=== PATIENT | male | born 1940 | race Caucasian/White ===

== ENCOUNTER → 2018-01-11 | Outpatient (CLI) | payer MEDICARE, OTHER ==
[~2018-01-11] MED LIST: ALLO300 PO; AMLO5 PO; ASPI81CH PO; ATOR10 PO; Aspirin EC81 MG; DONE10 PO; DORZOPSO; FISH OIL 1,0001 EACH PO; FISH1000 PO; GINKGO BILOBA MC; LATA.005SO BOTHEYES; LISI20 PO; METF500 PO; MULVITMIND PO; NAMENDA XR28 MG PO; NAMZARIC 28 MG1 EACH PO; QUET25 PO; SERT50 PO; SITA100T2 PO; TIMO.5OPSO BOTHEYES; VITAMIN D-32000 UNIT PO; Xalatan2.5 ML BOTHEYES
[2018-01-11 18:19] LABS: Bilirubin, Urine Neg (Neg); Blood, Urine 1+ (Neg); Glucose Qualitative, Urine Neg (Neg); Ketones, Urine 2+ (Neg); Leukocyte Esterase, Urine 2+ (Neg); Nitrite, Urine Neg (Neg); Protein, Urine 2+ (Neg); Urobilinogen, Urine 1+ (Normal)
[2018-01-11 18:28] LABS: Appearance, Urine Hazy (Clear); Color, Urine Yellow (P-Yellow)
[2018-01-11 18:29] LABS: Amorphous Light (0-Heavy); Bacteria Few /hpf; Red Blood Cells, Urine 0-2 /hpf (0-2); Squamous Epithelial Cells Few /hpf (Few)
== END ==
LOC: LAB SHORT 18:10
PROVIDERS: Internal Medicine
DX: N39.0 Urinary tract infection, site not specified (principal)
CPT/HCPCS: 81001; 87086

== ENCOUNTER 2018-02-07 19:28 | Emergency (ER) | payer MEDICARE, OTHER ==
[~2018-02-07] VITALS: Ht 172.7 cm; Wt 79.4 kg
[~2018-02-07 19:28] MED LIST changes: -ASPI81CH PO; -DORZOPSO; -FISH OIL 1,0001 EACH PO; -Xalatan2.5 ML BOTHEYES
[2018-02-07] MEDS ORDERED: DORZOPSO (19:39)
[2018-02-07] MEDS ORDERED: ASPI81CH PO (19:39)
[2018-02-07] MEDS ORDERED: SITA100T2 PO (19:40)
[2018-02-07] MEDS ORDERED: FISH OIL 1,0001 EACH PO (19:40)
[2018-02-07] MEDS ORDERED: Xalatan2.5 ML BOTHEYES (19:41)
[2018-02-07] MEDS ORDERED: NAMZARIC 28 MG1 EACH PO (19:42)
== END 2018-02-07 20:39 | disposition home or self-care (01) ==
LOC: ER 19:28
DX: G30.9 Alzheimer's disease, unspecified (principal); F02.80 Dementia in other diseases classified elsewhere, unspecified severity, without behavioral disturbance, psychotic disturbance, mood disturbance, and anxiety; Z79.899 Other long term (current) drug therapy; Z79.82 Long term (current) use of aspirin; E11.9 Type 2 diabetes mellitus without complications; I10 Essential (primary) hypertension; Z87.891 Personal history of nicotine dependence
CPT/HCPCS: 99283